=== PATIENT | male | born 1975 ===

== ENCOUNTER 2018-10-28 00:32 | Emergency (ER) | payer SELFPAY ==
[2018-10-28 00:36] VITALS: BMI 26.6
[2018-10-28] MEDS ORDERED: ASPIRIN 81 MG CHEWABLE TABLETS PO ONE (00:37)
[2018-10-28] MEDS ORDERED: HEPARIN NA (PORCINE) 5,000 UNITS/ML 1ML VIAL IVPUSH PRN (00:37)
--- NOTE | 2018-10-28 00:44 | PDOC ---
History of Present Illness - General Chief Complaint: Respiratory Distress Stated Complaint: DIFFICULTY BREATHING - History of Present Illness Initial Comments: 10/28/18 00:39 Patient is a 43 yo male w/ no known pmh who presents for evaluation of sudden onset shortness of breath today. Patient reported by family to have cough for the past 2-3 weeks w/ SOB that worsened today. Patient's family called EMS who intubated for worsening SOB and ronchi to lungs. No other history able to be obtained at this time. Past History - Past Medical History Allergies/Adverse Reactions: Allergies Allergy/AdvReac Type Severity Reaction Status Date / Time No Allergy Information Allergy Verified 10/28/18 00:36 Available Home Medications: Ambulatory Orders Unobtainable 10/28/18 - Suicide/Smoking/Psychosocial Hx Smoking History: Unknown if ever smoked Have you smoked in the past 12 months: No Information on smoking cessation initiated: No Hx Alcohol Use: No (unkonwn) Drug/Substance Use Hx: No (unknown) Review of Systems - Review of Systems Comments:: 10/28/18 00:43 Unable to obtain further. *Physical Exam - Vital Signs Last Vital Signs Temp Pulse Resp BP Pulse Ox 96.0 F L 137 H 12 109/93 94 L 10/28/18 00:33 10/28/18 00:33 10/28/18 00:33 10/28/18 00:33 10/28/18 00:33 - Physical Exam Comments: 10/28/18 00:43 GENERAL: +Patient intubated, cold to touch HEAD: No signs of trauma, normocephalic, atraumatic EYES: +Pupils fixed/non-reactive c/w RSI medication. Sclera anicteric, conjunctiva clear ENT: Auricles normal inspection, nares patent, oropharynx clear without exudates. Moist mucosa NECK: Normal ROM, supple, no lymphadenopathy, JVD, or masses LUNGS: +Diffuse ronchi noted throughout HEART: +Patient tachy, Regular rhythm, normal S1 and S2, no murmurs, rubs or gallops, peripheral pulses normal and equal bilaterally. ABDOMEN: Soft, nontender, normoactive bowel sounds. No guarding, no rebound. No masses EXTREMITIES: Normal inspection, Normal range of motion, no edema. No clubbing or cyanosis. NEUROLOGICAL: +Unable to assess SKIN: Cold, normal turgor, no rashes or lesions noted. ED Treatment Course - LABORATORY CBC & Chemistry Diagram: 10/28/18 00:40 10/28/18 00:40 Medical Decision Making - Medical Decision Making 10/28/18 00:46 Patient is a 43 yo male w/ pmh as described who presents via EMS w/ symptoms c/ w ACS vs. PE vs. Sepsis. Patient brought to code room and full evaluation started. Workup pending. 10/28/18 01:06 Patient noted to have B-lines KOKO on bedside US as well as enlarged R ventricle. [facility] contacted for transfer to facility w/ cardiac capabilities given depressions noted to V4-V6 possible c/w posterior WI. Patient accepted for transfer. *DC/Admit/Observation/Transfer Diagnosis at time of Disposition: STEMI (ST elevation myocardial infarction) Qualifiers: Involved coronary artery: unspecified coronary artery Qualified Code(s): I21.3 - ST elevation (STEMI) myocardial infarction of unspecified site Pulmonary edema Qualifiers: Chronicity: acute Qualified Code(s): J81.0 - Acute pulmonary edema - Discharge Dispostion Disposition: TRANSFER ACUTE CARE/OTHER HOSP - Referrals - Patient Instructions - Post Discharge Activity
[2018-10-28 00:51] LABS: BASO % 0.6 % (0-2.0); EOS % 0.3 % (0-4.5); HEMATOCRIT 42.2 % (35.4-49); HEMOGLOBIN 13.6 GM/dL (11.7-16.9); LYMPH % 9.5 % (8-40); MCH 29.9 pg (25.7-33.7); MCHC 32.1 g/dl (32.0-35.9); MEAN CELL VOLUME 93.1 fl (80-96); MEAN PLT VOLUME 8.4 fl (7.5-11.1); MONO % 2.7 % (3.8-10.2); NEUT % 86.9 % (42.8-82.8); PLATELET COUNT 538 K/MM3 (134-434); RBC 4.54 M/mm3 (4.00-5.60); RDW 14.1 % (11.9-15.9); WHITE BLOOD COUNT 28.5 K/mm3 (4.0-10.0)
[2018-10-28] MEDS ORDERED: TERBUTALINE SULFATE 1 MG/1 ML VIAL SQ ONE ×3 (00:58→01:32)
[2018-10-28] MEDS ORDERED: HEPARIN NA (PORCINE) 5,000 UNITS/ML 1ML VIAL ONE (01:00)
[2018-10-28 01:03] LABS: ARTERIAL BLD GAS O2 SATURATION 93.3 % (95-98); ARTERIAL BLOOD GAS PCO2 56.4 mmHg (35-45); ARTERIAL BLOOD GAS PO2 98.2 mmHg (80-105); CARBOXYHEMOGLOBIN 1.3 % (0-2)
[2018-10-28 01:04] LABS: ALLENS TEST POSITIVE
[2018-10-28 01:23] VITALS: BP 128/99; TEMP 96.1
[2018-10-28 01:25] LABS: BILIRUBIN,TOTAL 0.2 mg/dL (0.2-1); BLOOD UREA NITROGEN 14.5 mg/dL (7-18); CALCIUM 8.7 mg/dL (8.5-10.1); CREATININE 1.3 mg/dL (0.55-1.3); POTASSIUM 4.1 mmol/L (3.5-5.1)
--- NOTE | 2018-10-28 01:25 | PDOC ---
Documentation entered by Alisha Guajardo SCRIBE, acting as scribe for Chika Clark MD. Chika Clark MD: This documentation has been prepared by the Bennett grace Xhesika, SCRIBE, under my direction and personally reviewed by me in its entirety. I confirm that the documentation accurately reflects all work, treatment, procedures, and medical decision making performed by me. Attending Attestation - Resident Resident Name: Mo Oden - ED Attending Attestation I have performed the following: I have examined & evaluated the patient, The case was reviewed & discussed with the resident, I agree w/resident's findings & plan - HPI HPI: 10/28/18 00:42 The patient is a 43 year old female with no significant PMH of who presents to the emergency department via EMS for respiratory distress. History is limited due to patients condition, however EMS states the patient had been endorsing 2- 3 weeks of intermittent cough. 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 EMS notes the patient had severe difficulty breathing and when they arrived at the patients house the patient was in the shower wet and pale. EMS noted the patient was sinus tach to 130 and patient was intubated upon arrival. EMS notes patient is an everyday smoker. Allergies: NKDA - Physicial Exam PE: 10/28/18 00:54 GENERAL: (+) intubated EYES: (+) Pupils fixed, non-reactive ENT: nares patent, oropharynx clear without exudates. Moist mucosa NECK: Normal ROM, supple, no lymphadenopathy, JVD, or masses LUNGS: (+) diffuse ronchi HEART: (+) tachy. Regular rhythm, normal S1 and S2, no murmurs, rubs or gallops ABDOMEN: Soft, nontender, normoactive bowel sounds. No guarding, no rebound. No masses EXTREMITIES: Normal range of motion, no edema. No clubbing or cyanosis. No cords, erythema, or tenderness SKIN: (+) cold, clammy - Critical Care Time Total Critical Care Time: 40 Critical Care Statement: The care of this patient involved high complexity decision making to prevent further life threatening deterioration of the patient 's condition and/or to evaluate & treat vital organ system(s) failure or risk of failure. - Medical Decision Making 10/28/18 01:20 Pt arrived intubated. 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 Today went to work, complained more about SOB; then suddenly resp failure. Family dumped him in a cold shower to wake him and called EMS. EMS intubated patient. Pt has no Past med history. He inhaled dust at the factory as per family members. He is afebrile. Pt has WBC 28 and platelet count of 538. Pt had UTOX sent and UA sent and acetone negative. Chem pending Cardiac enzymes and Ddimer pending. Blood cultures sent. 10/28/18 01:27 Dr. Mejía of cath attending online tutor accepts patient. ER to ER transfer. I gave report to the [facility] attending. STEMI fellow is also aware of the patient. 10/28/18 01:28 10/28/18 01:34 Chemistries and LFTs are normal card enz pending BNP added on. Heart Score/ECG Review - ECG Intrepretation Rhythm: Regular Rhythm - [place]: Normal - P and IA Prominent R with upright T in V1 (true posterior LA): No Delta Wave(s) Present: No WPW: No - QRS Poor R Wave Progression: No Q Wave Present: No - ST and T Early Repolarization: No Non Specific ST-T Wave changes: Yes Comment:: 10/28/18 01:24 ST depression in V2V3 -- possible posterior STEMI. - ECG Impressions Normal ECG: Yes Non-specific ST Elevation: Yes Ischemic Changes: Yes (flipped Ts) Acute Myocardial Infarction: Posterior
[2018-10-28 01:36] VITALS: PULSE 138
[2018-10-28 01:37] LABS: INR 1.18 (0.83-1.09); PROTHROMBIN TIME (PATIENT) 13.9 SEC (9.7-13.0)
[2018-10-28] MEDS ORDERED: ROCURONIUM BROMIDE 50 MG/5 ML VIAL IVPUSH ONE (01:39)
[2018-10-28 01:54] LABS: EPI CELLS 1.2 /HPF (0-5/HPF); HYALINE CASTS 18 /lpf (0-8); URINE APPEARANCE TURBID; URINE BACTERIA 0.2 /hpf (NEGATIVE); URINE BILIRUBIN 1+ (NEGATIVE); URINE COLOR DK YELLOW; URINE GLUCOSE (UA) NEGATIVE (NEGATIVE); URINE KETONE NEGATIVE (NEGATIVE); URINE LEUK ESTERASE NEGATIVE (NEGATIVE); URINE NITRITE NEGATIVE (NEGATIVE); URINE PROTEIN 1+ (NEGATIVE); URINE RBC 1 /hpf (0-4); URINE WBC 2 /hpf (0-5)
[2018-10-28 02:10] LABS: COCAINE, UR NEGATIVE ng/ml (CUTOFF=300); METHADONE, UR NEGATIVE ng/ml (CUTOFF=300); OPIATES, URI NEGATIVE ng/ml (CUTOFF=300); PHENCYCLIDINE,URINE NEGATIVE ng/ml (CUTOFF=25); URINE AMPHETAMINES NEGATIVE ng/ml (CUTOFF=500); URINE BARBITURATES NEGATIVE ng/ml (CUTOFF=200); URINE BENZODIAZEPINES NEGATIVE ng/ml (CUTOFF=200)
[2018-10-28 03:03] LABS: ANISOCYTOSIS 0; HELMET CELLS 0; HOWELL-JOLLY BODIES 0; MACROCYTOSIS 0; OVALOCYTE 0; PLATELET ESTIMATE NORMAL; ROULEAU 0; SICKELED CELLS 0; TARGET CELLS 0; TEAR DROP CELLS 0; TOXIC GRANULATION 0
[2018-10-28 04:06] LABS: URINE CRYSTALS AMORPHOUS URATES /hpf; YEAST NONE SEEN (NEGATIVE)
--- NOTE | 2018-10-29 06:46 | EKG ---
Test Reason : Blood Pressure : / mmHG Vent. Rate : 132 BPM Atrial Rate : 132 BPM P-R Int : 136 ms QRS Dur : 114 ms QT Int : 308 ms P-R-T Axes : 069 100 -65 degrees QTc Int : 456 ms SINUS TACHYCARDIA RIGHTWARD AXIS ABNORMAL ECG WHEN COMPARED WITH ECG OF 28-OCT-2018 00:29, CRITERIA FOR ANTERIOR INFARCT ARE NO LONGER PRESENT CRITERIA FOR ANTEROLATERAL INFARCT ARE NO LONGER PRESENT POSTERIOR EKG Confirmed by ZACKERY ARANDA MD ([id number]) on 10/29/2018 6:45:33 AM Referred By: Confirmed By:ZACKERY ARANDA MD
--- NOTE | 2018-10-29 06:46 | EKG ---
Test Reason : Blood Pressure : / mmHG Vent. Rate : 131 BPM Atrial Rate : 131 BPM P-R Int : 140 ms QRS Dur : 118 ms QT Int : 298 ms P-R-T Axes : 068 099 -57 degrees QTc Int : 440 ms SINUS TACHYCARDIA ANTEROLATERAL INFARCT , AGE UNDETERMINED ABNORMAL ECG WHEN COMPARED WITH ECG OF 28-OCT-2018 00:22, ANTERIOR INFARCT IS NOW PRESENT ANTEROLATERAL INFARCT IS NOW PRESENT RIGHT SIDED EKG Confirmed by ROSI QUINTERO, ZACKERY ([id number]) on 10/29/2018 6:45:49 AM Referred By: Confirmed By:ZACKERY ARANDA MD
--- NOTE | 2018-10-29 06:46 | EKG ---
Test Reason : Blood Pressure : / mmHG Vent. Rate : 133 BPM Atrial Rate : 133 BPM P-R Int : 118 ms QRS Dur : 122 ms QT Int : 312 ms P-R-T Axes : 064 098 -42 degrees QTc Int : 464 ms SINUS TACHYCARDIA POSSIBLE LEFT ATRIAL ENLARGEMENT RIGHTWARD AXIS NON-SPECIFIC INTRA-VENTRICULAR CONDUCTION DELAY ABNORMAL ECG NO PREVIOUS ECGS AVAILABLE Confirmed by ZACKERY ARANDA MD ([id number]) on 10/29/2018 6:45:58 AM Referred By: Confirmed By:ZACKERY ARANDA MD
== END 2018-10-28 01:54 | disposition short-term general hospital (02) ==
LOC: JER 00:32
PROC: BB4BZZZ Ultrasonography of Pleura (ICD-10-PCS; principal; 2018-10-28)
PROC: 3E033GC Introduction of Other Therapeutic Substance into Peripheral Vein, Percutaneous Approach (ICD-10-PCS; 2018-10-28)
PROC: 3E013GC Introduction of Other Therapeutic Substance into Subcutaneous Tissue, Percutaneous Approach (ICD-10-PCS; 2018-10-28)
DX: I21.3 ST elevation (STEMI) myocardial infarction of unspecified site (principal); J81.0 Acute pulmonary edema; F17.210 Nicotine dependence, cigarettes, uncomplicated
CPT/HCPCS: 36415; 36600; 71045-TC-FY; 80053; 80307; 81003; 82009; 82375; 82550; 82553; 82803; 83050; 83605; 84484; 85025; 85379; 85610; 87040; 87086; 93005; 93010; 99285-25; J1644